=== PATIENT | female | born 1950 | race Caucasian/White ===

== ENCOUNTER 2023-04-24 11:51 | Outpatient (RCR) | payer MEDICARE, OTHER, SELFPAY | END 2023-05-21 23:59 | disposition home or self-care (01) | LOC: SPT 11:51 | PROVIDERS: Visit Provider Nurse Practitioner Family | DX: N39.3 Stress incontinence (female) (male) (principal) | CPT/HCPCS: 97110; 97161; 97530 ==

== ENCOUNTER 2023-05-22 06:00 | Outpatient (RCR) | payer MEDICARE, OTHER, SELFPAY | END 2023-06-20 23:59 | disposition home or self-care (01) | LOC: SPT 06:00 | PROVIDERS: Visit Provider Nurse Practitioner Family | DX: N39.3 Stress incontinence (female) (male) (principal) | CPT/HCPCS: 97530 ==

== ENCOUNTER 2023-08-13 06:00 | Outpatient (RCR) | payer MEDICARE, OTHER, SELFPAY | END 2023-08-13 23:59 | disposition home or self-care (01) | LOC: SPT 06:00 | PROVIDERS: Visit Provider Nurse Practitioner Family | DX: N39.3 Stress incontinence (female) (male) (principal) | CPT/HCPCS: 97530 ==

== ENCOUNTER → 2023-09-13 15:14 | Outpatient (BNVA) | payer MEDICARE, OTHER, SELFPAY | PROVIDERS: PCP Nurse Practitioner Family; Referring Provider Nurse Practitioner Family; Visit Provider Specialist | DX: G56.03 Carpal tunnel syndrome, bilateral upper limbs (principal); M79.89 Other specified soft tissue disorders | CPT/HCPCS: 95910; 95911 ==